=== PATIENT | male | born 1945 | race Caucasian/White ===

== ENCOUNTER 2021-07-26 15:18 | Inpatient (IN) | payer MEDICARE, SELFPAY ==
[2021-07-26] VITALS (15 sets, daily range): BP systolic 147–172; BP diastolic 78–91; PULSE 63–75; RESP 14–23; TEMP 36.2–36.8; O2SAT 84–97; BMI 41.4; BMI 40.8
--- NOTE | 2021-07-26 15:52 | EKG12_ITS ---
Test Reason : Blood Pressure : / mmHG Vent. Rate : 066 BPM Atrial Rate : 066 BPM P-R Int : 204 ms QRS Dur : 208 ms QT Int : 488 ms P-R-T Axes : 005 -53 100 degrees QTc Int : 511 ms Atrial-sensed ventricular-paced rhythm Abnormal ECG Confirmed by RADHA MONROE, SAURABH ([id number]), assistant film editor MONIQUE BULLOCK ([id number]) on 07/27/2021 2:46:53 PM Referred By: OLI Confirmed By:SAURABH GARCIA MD
--- NOTE | 2021-07-26 16:00 | EDS_ITS ---
HPI History of Present Illness Chief Complaint: Shortness of Breath Narrative Narrative: 76-year-old male presenting with shortness of breath. He states has been ongoing for a couple of weeks. He is worse over the last 3 days. He notes that he is having to sleep sitting upright. He has lower extremity edema which is worsening. He notes tightness across his chest when he ambulates. Patient was seen by his primary care physician today who sent him to the emergency room. Patient does have a smoking history but does not smoke anymore. He is not had fever or chills. No nausea or vomiting. He has a history of pacemaker placement and a cardiac stent. Patient not on any oral anticoagulation. [facility] Medical History Brain bleed CAD (coronary artery disease) High cholesterol HTN (hypertension) Lung cancer Pacemaker Home Medications amlodipine 5 mg PO DAILY 05/15/16 [History Last Taken 07/26/21] aspirin 81 mg PO DAILY@199905/15/16 [History Last Taken 07/25/21] coenzyme Q10 50 mg PO DAILY 05/15/16 [History Last Taken 07/26/21] metoprolol tartrate 50 mg PO BID 05/15/16 [History Last Taken 07/26/21] sertraline 100 mg PO DAILY 05/15/16 [History Last Taken 07/26/21] tamsulosin [Flomax] 0.4 mg PO DAILY 05/15/16 [History Last Taken 07/25/21] albuterol sulfate 2 puff INHALATION Q4H PRN PRN 07/26/21 [History Last Taken 07/25/21] fluticasone propionate 1 spray INTRANASAL QHS 07/26/21 [History Last Taken 07/25/21] rosuvastatin 10 mg PO DAILY 07/26/21 [History Last Taken 07/25/21] Allergy/AdvReac Type Severity Reaction Status Date / Time morphine Allergy Rash Verified 07/26/21 15:20 Family History (Updated 07/26/21 @ 18:20 by Kwame MEEHAN) Father Cancer Throat cancer Mother Diabetes Surgical History H/O heart artery stent H/O heart artery stent History of lung surgery Hx of cholecystectomy Social History (Updated 07/26/21 @ 18:20 by Kwame MEEHAN) household members: spouse housing: house Smoking Status: Former smoker ROS ROS ED Constitutional Constitutional ED: Denies chills or fever(s) Eyes Eyes: Denies blurry vision or diplopia ENT ENT ED: Denies rhinorrhea or sore throat Cardiovascular Cardiovascular: Reports chest pain and orthopnea Respiratory/Chest Respiratory/Chest: Reports dyspnea, dyspnea on exertion and orthopnea Gastrointestinal Gastrointestinal: Denies abdominal pain, nausea or vomiting Genitourinary Genitourinary ED: Denies dysuria or hematuria Musculoskeletal Musculoskeletal: Denies arthralgias or myalgias Integumentary Denies rash Neurologic Neurologic: Denies headache(s) or paresthesias EXAM Physical Exam Const Vital Signs: 07/26/21 15:18 07/26/21 15:53 07/26/21 15:54 Temperature 97.2 F L Temperature Source Temporal Pulse Rate 68 Respiratory Rate 14 Respiratory Effort Blood Pressure 172/91 H Blood Pressure Mean 118 Pulse Ox 92 85 90 Oxygen Delivery Method Room Air Room Air Nasal Cannula Oxygen Flow Rate (L/min) 2 07/26/21 15:55 07/26/21 16:01 07/26/21 16:07 Temperature Temperature Source Pulse Rate 65 Respiratory Rate 23 H Respiratory Effort Short of Breath Labored Blood Pressure Blood Pressure Mean Pulse Ox 95 Oxygen Delivery Method Room Air Nasal Cannula Nasal Cannula Oxygen Flow Rate (L/min) 2 2 07/26/21 16:21 07/26/21 17:00 Temperature Temperature Source Pulse Rate 65 Respiratory Rate 17 Respiratory Effort Blood Pressure Blood Pressure Mean Pulse Ox 93 93 Oxygen Delivery Method Nasal Cannula Nasal Cannula Oxygen Flow Rate (L/min) 2 2 Positive well nourished General Appearance ED: NAD HEENT Reports moist mucous membranes atraumatic Eyes PERRL and EOMs intact bilaterally General Eye ED: Negative for pale conjunctiva or scleral icterus Neck no lymphadenopathy and supple Resp normal respiratory effort Cardio regular rate and regular rhythm GI non-tender and non-distended Palpation: soft Extremity General Extremety ED: Yes edema and tenderness General Extremity: edema Neuro oriented x3, CN's II-XII intact bilaterally and no sensory deficits noted Sensorium / Orientation: alert Motor Exam: strength 5/5 throughout Psych mental status grossly normal Thought Process: normal thought process Skin Lesions: no lesions Rashes: no rashes MDM MDM MDM Narrative Medical decision making narrative: Patient presenting with 2 weeks of worsening shortness of breath. He is placed on 3 L of nasal cannula and then weaned to 2 L. He is maintaining O2 sats 92 to 93%. Patient describing orthopnea, dyspnea on exertion, chest tightness with exertion, lower extremity edema. Patient has cardiac disease but no history of CHF. EKG is obtained and on my interpretation this is a paced rhythm at [address]-T wave changes. Chest x-ray on my interpretation does not show any acute cardiopulmonary process. CBC and BMP are unremarkable with exception of a sodium of 130. D-dimer is age-adjusted at 0.65 and is negative. BNP 159. High-sensitivity troponin is 8. Clinically I believe the patient is in congestive heart failure with symptoms. He is given 40 of Lasix IV. Patient was discussed with the hospitalist for admission. Impression: 1. CHF 2. Chest pain 3. Hyponatremia 4. Dyspnea 5. Hypoxic respiratory failure Lab Data Labs: Laboratory Results - last 24 hr 07/26/21 07/26/21 07/26/21 16:05 16:05 16:05 WBC 6.8 RBC 5.01 Hgb 13.1 Hct 41.4 MCV 82.6 MCH 26.1 L MCHC 31.6 L RDW Std Deviation 38.7 RDW Coeff of Verena 12.8 Plt Count 201 MPV 9.4 Immature Gran % (Auto) 0.300 Neut % (Auto) 73.9 H Lymph % (Auto) 12.3 L [place] % (Auto) 7.9 Eos % (Auto) 5.0 Baso % (Auto) 0.6 Absolute Neuts (auto) 5.1 Absolute Lymphs (auto) 0.84 Nucleated RBC % 0 D-Dimer Quant (PE/DVT) 0.65 H* Sodium 130 L Potassium 4.2 Chloride 93 L Carbon Dioxide 31.0 Anion Gap 6 BUN 10 Creatinine 0.73 Estim Creat Clear Calc 56.92 Est GFR (MDRD) Af Amer 134 Est GFR (MDRD) Non-Af 111 BUN/Creatinine Ratio 13.7 Glucose 120 H Calcium 8.5 Troponin I High Sens 8 B-Natriuretic Peptide 07/26/21 16:05 WBC RBC Hgb Hct MCV MCH MCHC RDW Std Deviation RDW Coeff of Verena Plt Count MPV Immature Gran % (Auto) Neut % (Auto) Lymph % (Auto) [place] % (Auto) Eos % (Auto) Baso % (Auto) Absolute Neuts (auto) Absolute Lymphs (auto) Nucleated RBC % D-Dimer Quant (PE/DVT) Sodium Potassium Chloride Carbon Dioxide Anion Gap BUN Creatinine Estim Creat Clear Calc Est GFR (MDRD) Af Amer Est GFR (MDRD) Non-Af BUN/Creatinine Ratio Glucose Calcium Troponin I High Sens B-Natriuretic Peptide 159.3 H Radiography Diagnostic Testing: Clinical Impression(s) from Imaging Studies Chest X-Ray 07/26/21 16:05 IMPRESSION: No radiographic evidence of acute cardiopulmonary disease. at 1656 Reported and signed by: Alejandro Ring MD Electronically Signed: Alejandro Ring MD at 16:55 EDT , Discharge Plan Disposition Disposition: Acute Care Hospital [facility] Discharge Date/Time: 07/26/21 18:20
--- NOTE | 2021-07-26 16:05 | RAD_ITS ---
History: dyspnea EXAMINATION/TECHNIQUE: XR Chest 1 View: Portable COMPARISON: May 15, 2016 FINDINGS: LINES/DEVICES: Interval atrial and ventricular pacemaker wire placement. LUNGS: Mild bibasilar atelectasis. Blunting of the left lateral costophrenic sulcus again noted suggestive of scarring. No pneumothorax. MEDIASTINUM AND CARDIOVASCULAR STRUCTURES: Cardiac silhouette not enlarged. Central airways and mediastinal contour are unremarkable. BONES AND SOFT TISSUES: Unremarkable. RAD/Chest 1 View (Portable) IMPRESSION: No radiographic evidence of acute cardiopulmonary disease. at 1656 Reported and signed by: Alejandro Ring MD Electronically Signed: Alejandro Ring MD at 16:55 EDT ,
[2021-07-26 16:25] LABS: Absolute Lymphocyte Count 0.84 X10^3/uL (0.83-4.51); Absolute Neutrophil Count 5.1 X10^3/uL (2.0-7.7); Basophil# 0.04 X10^3/uL; Basophil% 0.6 % (0-1); Eosinophil# 0.34 X10^3/uL; Hematocrit 41.4 % (40-54); Hemoglobin 13.1 g/dL (13.0-16.5); Lymphocyte # 0.84 X10^3/ul (0.83-4.51); Lymphocyte % 12.3 % (19-41); Mean Corp Hgb Conc 31.6 g/dL (32-36); Mean Corpuscular Hgb 26.1 pg (27.0-32.0); Mean Corpuscular Volume 82.6 fL (80-94); Mean Platelet Vol. 9.4 fl (6.2-12.0); Monocyte# 0.54 X10^3/uL; Monocyte% 7.9 % (0-10); NRBC Flagged by Analyzer 0 % (0-5); Neutrophil # 5.06 X10^3/uL (2.7-7.7); Neutrophil % 73.9 % (47-70); Platelet Count 201 K/mm3 (150-450); RBC Distribution Width CV 12.8 % (11.6-14.6); RBC Distribution Width SD 38.7 fl (35.1-43.9); Red Blood Count 5.01 M/mm3 (4.6-6.2); White Blood Count 6.8 K/mm3 (4.4-11.0)
[2021-07-26 16:40] LABS: BUN 10 mg/dL (7-18); BUN/Creat Ratio 13.7 RATIO (10-20); Calcium,Total 8.5 mg/dL (8.5-10.1); Creatinine, Serum 0.73 mg/dL (0.70-1.30); EST Glomerular Filtration Rate 111 mL/min (>60); Est Glom Filt Rate - Afr Amer 134 mL/min (>60); Estimated Creatinine Clearance 56.92 ml/min; Glucose 120 mg/dL (74-106); Sodium Level 130 mmol/L (136-145); Troponin-I HS 8 pg/mL (3.0-78.0)
[2021-07-26 16:41] LABS: Anion Gap 6 (5-15); Chloride 93 mmol/L (98-107); Potassium 4.2 mmol/L (3.5-5.1)
[2021-07-26 16:51] LABS: D-Dimer Quantitative (DVT/PE) 0.65 FEU/ug/m (0.27-0.49)
[2021-07-26 16:52] LABS: BNP,B-Type NATRIURETIC PEPTIDE 159.3 pg/mL (0-100)
--- NOTE | 2021-07-26 17:57 | NURSING ---
YESENIA TOLENTINO CHF
--- NOTE | 2021-07-26 18:05 | HP.PCM.HOS_ITS ---
Documented by User: Kwame MEEHAN 07/26/21 18:38 HPI - General General Date of Admission: 07/26/21 Date of Service: 07/26/21 Chief Complaint: Shortness of breath HPI Narrative EDSON BENÍTEZ is a 76-year-old male who presents to the ED at [facility] on 07/26/2021 with a chief complaint of shortness of breath. Patient reports that for the past 3 weeks he has been noticing that he has been getting progressively more short of breath. Patient notices the shortness of breath with exertion and at rest, but denies orthopnea and/or paroxysmal nocturnal dyspnea. He also reports that his lower extremities have become swollen over the past few days and that he feels that he has gained weight, although is unclear how much. Patient denies any other infectious symptoms to include purulent spu josep production, fever, chills, N/V/D. Past medical history is significant for small cell lung cancer, pacemaker placement and cardiac stent. Vital signs are stable, although patient was placed on 2 L of oxygen via nasal cannula due to hypoxia at 85% on room air. CBC is unremarkable. BMP shows sodium at 130, otherwise unremarkable. BNP 159. Chest x-ray shows no acute cardiopulmonary process, although there is some pulmonary vascular congestion. Patient was given Lasix while in the ED. [facility] Medical History (Updated 07/26/21 @ 19:[address] Vincent Zheng MD) Anxiety Brain bleed CAD (coronary artery disease) Congestive heart failure (CHF) Depression Former smoker High cholesterol HTN (hypertension) ICD (implantable cardioverter-defibrillator) in place Lung cancer Myocardial infarct Pacemaker Pancreatitis Home Medications amlodipine 5 mg PO DAILY 05/15/16 [History Last Taken 07/26/21] aspirin 81 mg PO DAILY@199905/15/16 [History Last Taken 07/25/21] coenzyme Q10 50 mg PO DAILY 05/15/16 [History Last Taken 07/26/21] metoprolol tartrate 50 mg PO BID 05/15/16 [History Last Taken 07/26/21] sertraline 100 mg PO DAILY 05/15/16 [History Last Taken 07/26/21] tamsulosin [Flomax] 0.4 mg PO DAILY 05/15/16 [History Last Taken 07/25/21] albuterol sulfate 2 puff INHALATION Q4H PRN PRN 07/26/21 [History Last Taken 07/25/21] fluticasone propionate 1 spray INTRANASAL QHS 07/26/21 [History Last Taken 07/25/21] rosuvastatin 10 mg PO DAILY 07/26/21 [History Last Taken 07/25/21] Allergy/AdvReac Type Severity Reaction Status Date / Time morphine Allergy Rash Verified 07/26/21 15:20 Family History (Updated 07/26/21 @ 18:20 by Kwame MEEHAN) Father Cancer Throat cancer Mother Diabetes Surgical History H/O heart artery stent H/O heart artery stent History of lung surgery Hx of cholecystectomy Social History (Updated 07/26/21 @ 18:20 by Kwame MEEHAN) household members: spouse housing: house Smoking Status: Former smoker ROS Constitutional Constitutional: Denies anorexia, change in weight, chills, fatigue, fever(s), malaise, night sweats, weakness or other Eyes Eyes: Denies blurry vision, change in eye color, change in vision, discharge from eye(s), double vision, erythema, eye pain, loss of vision or other ENT HEENT: Denies abnormal hearing, dysphagia, ear pain, epistaxis, headache(s), hearing loss, nasal congestion, nasal discharge, post nasal drip, sinus pressure, sore throat or other Cardiovascular Cardiovascular: Reports dyspnea on exertion and edema; Denies chest pain, claudication, lightheadedness, orthopnea, palpitations, paroxysmal nocturnal dys pnea, rapid heart rate, syncope or other Respiratory/Chest Respiratory/Chest: Reports dyspnea and shortness of breath with exertion; Denies cough, excessive phlegm production, hemoptysis, productive cough, shortness of breath at rest, wheezing or other Gastrointestinal Gastrointestinal: Denies abdominal pain, coffee ground emesis, constipation, diarrhea, dyspepsia, hematemesis, hematochezia, loose stools, melena, nausea, vomiting or other Genitourinary Genitourinary: Denies burning urination, difficulty urinating, dysuria, hematuria, nocturia, urinary frequency, urinary hesitancy, urinary incontinence, urinary urgency or other Musculoskeletal Musculoskeletal: Denies arthralgias, back pain, joint pain, joint stiffness, joint swelling, myalgias, neck pain or other Neurologic Neurologic: Denies abnormal gait, abnormal speech, confusion, disequilibrium, dizziness, focal weakness, headache(s), numbness, paresthesias, seizure-like activity, seizures, syncope, tingling, tremor(s) or other Psychiatric Psychiatric: Denies anxiety, depression, homicidal ideation, suicidal ideation or other Endocrine Endocrinology: Denies change in body appearance, cold intolerance, excessive sweating, heat intolerance, polydipsia, polyuria or other Hematologic/Lymphatic Hematologic/Lymphatic: Denies anemia, easy bleeding, easy bruising, lymphadenopathy or other Allergic/Immunologic Allergic/Immunologic: Denies rhinitis, hives, eczemia, asthma or other Vital Signs Vital Signs Vital Signs: 07/26/21 15:18 07/26/21 15:53 07/26/21 15:54 Temperature 97.2 F L Temperature Source Temporal Pulse Rate 68 Respiratory Rate 14 Respiratory Effort Blood Pressure 172/91 H Blood Pressure Mean 118 Pulse Ox 92 85 90 Oxygen Delivery Method Room Air Room Air Nasal Cannula Oxygen Flow Rate (L/min) 2 07/26/21 15:55 07/26/21 16:01 07/26/21 16:07 Temperature Temperature Source Pulse Rate 65 Respiratory Rate 23 H Respiratory Effort Short of Breath Labored Blood Pressure Blood Pressure Mean Pulse Ox 95 Oxygen Delivery Method Room Air Nasal Cannula Nasal Cannula Oxygen Flow Rate (L/min) 2 2 07/26/21 16:21 07/26/21 17:00 Temperature Temperature Source Pulse Rate 65 Respiratory Rate 17 Respiratory Effort Blood Pressure Blood Pressure Mean Pulse Ox 93 93 Oxygen Delivery Method Nasal Cannula Nasal Cannula Oxygen Flow Rate (L/min) 2 2 Weight Weight: 264 lb 8.875 oz Body Mass Index (BMI) 41.4 Physical Exam Const alert and oriented x3 General Appearance: cooperative HEENT normocephalic, head/scalp atraumatic and hearing grossly normal bilaterally Eyes PERRL and conjunctivae normal Neck no lymphadenopathy, supple and no JVD Resp no retractions and no use of accessory muscles Effort and Inspection: labored Auscultation: wheezes and diminished lung sounds Cardio regular rate, regular rhythm and no JVD GI normal to inspection, nondistended, normoactive bowel sounds Extremity normal to inspection Skin no rashes or lesions noted, no wounds and skin turgor normal Neuro CN's II-XII intact bilaterally Psych affect normal Results Lab / Micro Data Result Diagrams: 07/26/21 16:05 07/26/21 16:05 Labs: Laboratory Results - last 24 hr 07/26/21 16:05: WBC 6.8, RBC 5.01, Hgb 13.1, Hct 41.4, MCV 82.6, MCH 26.1 L, MCHC 31.6 L, RDW Std Deviation 38.7, RDW Coeff of Verena 12.8, Plt Count 201, MPV 9.4, Immature Gran % (Auto) 0.300, Neut % (Auto) 73.9 H, Lymph % (Auto) 12.3 L, [place] % (Auto) 7.9, Eos % (Auto) 5.0, Baso % (Auto) 0.6, Absolute Neuts (auto) 5.1, Absolute Lymphs (auto) 0.84, Nucleated RBC % 0 07/26/21 16:05: D-Dimer Quant (PE/DVT) 0.65 H* 07/26/21 16:05: Sodium 130 L, Potassium 4.2, Chloride 93 L, Carbon Dioxide 31.0, Anion Gap 6, BUN 10, Creatinine 0.73, Estim Creat Clear Calc 56.92, Est GFR (MDRD) Af Amer 134, Est GFR (MDRD) Non-Af 111, BUN/Creatinine Ratio 13.7, Glucose 120 H, Calcium 8.5, Troponin I High Sens 8 07/26/21 16:05: B-Natriuretic Peptide 159.3 H Radiology Impression Chest X-Ray 07/26/21 16:05 IMPRESSION: No radiographic evidence of acute cardiopulmonary disease. at 1656 Reported and signed by: Alejandro Ring MD Electronically Signed: Alejandro Ring MD at 16:55 EDT , Assessment & Plan Assessment/Plan (1) Dyspnea: (2) CHF exacerbation: PLAN: Patient is a 76-year-old male who was admitted to [facility] on 07/26/2021 for evaluation and management of shortness of breath. Patient will be admitted for suspected acute CHF exacerbation. 1) acute CHF exacerbation Unclear subtype, new onset. Patient with hypoxia at 85% on room air, currently satting 93% on 2 L via nasal cannula. BNP mildly elevated at 159. Chest x-ray without cardiomegaly although some pulmonary vascular congestion appreciated. Plan; admit to PCU for cardiac monitoring, initiate IV Lasix 40 mg twice daily, strict I's and O's, monitor daily weights, initiate fluid restriction, obtain CBC and BMP in a.m., echocardiogram in a.m. 2) history of small cell lung cancer Patient had left lower lobe removed in 2004, does not follow with any oncologist. 3) HTN Not within goal, continue metoprolol and amlodipine. 4) depression/anxiety Continue home Zoloft. 5) CAD status post stent Follows with opto mechanical technician at [facility], continue aspirin and statin. 6) BPH Continue Flomax. DVT prophylaxis - Lovenox Patient seen by Kwame Thomas PA-C, under the supervision of Dr. Zheng. Time spent on patient care: 25 minutes. Documented by User: Dr. Vincent Zheng MD 07/26/21 19:25 HPI - General General Date of Admission: 07/26/21 [facility] Medical History (Updated 07/26/21 @ 19:[address] Vincent Zheng MD) Anxiety Brain bleed CAD (coronary artery disease) Congestive heart failure (CHF) Depression Former smoker High cholesterol HTN (hypertension) ICD (implantable cardioverter-defibrillator) in place Lung cancer Myocardial infarct Pacemaker Pancreatitis Home Medications amlodipine 5 mg PO DAILY 05/15/16 [History Last Taken 07/26/21] aspirin 81 mg PO DAILY@199905/15/16 [History Last Taken 07/25/21] coenzyme Q10 50 mg PO DAILY 05/15/16 [History Last Taken 07/26/21] metoprolol tartrate 50 mg PO BID 05/15/16 [History Last Taken 07/26/21] sertraline 100 mg PO DAILY 05/15/16 [History Last Taken 07/26/21] tamsulosin [Flomax] 0.4 mg PO DAILY 05/15/16 [History Last Taken 07/25/21] albuterol sulfate 2 puff INHALATION Q4H PRN PRN 07/26/21 [History Last Taken 07/25/21] fluticasone propionate 1 spray INTRANASAL QHS 07/26/21 [History Last Taken 07/25/21] rosuvastatin 10 mg PO DAILY 07/26/21 [History Last Taken 07/25/21] Allergy/AdvReac Type Severity Reaction Status Date / Time morphine Allergy Rash Verified 07/26/21 15:20 Family History (Updated 07/26/21 @ 18:20 by Kwame MEEHAN) Father Cancer Throat cancer Mother Diabetes Surgical History H/O heart artery stent H/O heart artery stent History of lung surgery Hx of cholecystectomy Social History (Updated 07/26/21 @ 18:20 by Kwame MEEHAN) household members: spouse housing: house Smoking Status: Former smoker Results Lab / Micro Data Result Diagrams: 07/26/21 16:05 07/26/21 16:05 Assessment & Plan Assessment/Plan (1) Acute respiratory failure with hypoxia: Charges/Coding Addendum Addendum: Dr. Zheng: I personally reviewed the chart and examined the patient, and agree with the above findings. 76-year-old male with a history of a heart stent as well as tobacco abuse presents to the hospital with worsening shortness of breath as well as lower extremity edema. He also endorses some orthopnea. He says that he is had multiple echoes in the past but never been told that he has heart failure. Renal function is normal but his BNP was elevated to 159.3, initial troponin was 8. We will start him on Lasix as well as a fluid restriction as well as daily weights. Will obtain an echo in the morning. In the ER he was hypoxic to 84% and is requiring 2 L which is new for him. Clinical time spent in all aspects of patient care: 45 minutes Visit Charges Inpatient E&M: 40971 Init Hosp L3
[2021-07-26] MEDS: Furosemide 40 MG/4 ML Vial IV (18:17)
[2021-07-26] MEDS: Metoprolol Tartrate 50 MG Tablet PO (21:28)
[2021-07-26] MEDS: Atorvastatin Calcium 20 MG Tablet PO (21:28)
[2021-07-27] VITALS (15 sets, daily range): BP systolic 117–153; BP diastolic 61–78; PULSE 65–88; RESP 16–21; TEMP 36.5–36.8; O2SAT 94–96
[2021-07-27 05:51] LABS: Absolute Lymphocyte Count 0.84 X10^3/uL (0.83-4.51); Absolute Neutrophil Count 4.2 X10^3/uL (2.0-7.7); Basophil# 0.04 X10^3/uL; Basophil% 0.7 % (0-1); Eosinophil# 0.36 X10^3/uL; Eosinophils% 5.9 % (0-5); Hematocrit 41.9 % (40-54); Hemoglobin 13.5 g/dL (13.0-16.5); Lymphocyte # 0.84 X10^3/ul (0.83-4.51); Lymphocyte % 13.7 % (19-41); Mean Corp Hgb Conc 32.2 g/dL (32-36); Mean Corpuscular Hgb 26.3 pg (27.0-32.0); Mean Corpuscular Volume 81.5 fL (80-94); Mean Platelet Vol. 9.6 fl (6.2-12.0); Monocyte# 0.66 X10^3/uL; Monocyte% 10.7 % (0-10); NRBC Flagged by Analyzer 0 % (0-5); Neutrophil # 4.22 X10^3/uL (2.7-7.7); Neutrophil % 68.5 % (47-70); Platelet Count 194 K/mm3 (150-450); RBC Distribution Width CV 12.8 % (11.6-14.6); Red Blood Count 5.14 M/mm3 (4.6-6.2); White Blood Count 6.2 K/mm3 (4.4-11.0)
--- NOTE | 2021-07-27 05:55 | ECHOCS_ITS ---
Reason For Study: CHF Procedure This was a 2D Doppler, Color Flow transthoracic echocardiogram. Very technically difficult study due to patients body habitus. Contrast injection was performed. The study was technically difficult. Contrast injection was performed. Exam performed portable in patient room. Left Ventricle Based upon the 2D echocardiographic images obtained there appears to be grossly normal left ventricular size with left ventricular regional wall motion abnormalities with overall preserved LV systolic function. The estimated ejection fraction is 55 %. Diastolic function is indeterminate. Right Ventricle Normal RV size. ICD or pacer leads identified within the right ventricle. Normal systolic function. Atria The left atrium is mildly enlarged. Normal right atrium. ICD or pacer leads identified within the right atrium. No doppler evidence for ASD. Mitral Valve There is mild mitral annular calcification. Extension of the mitral annular calcification onto the base of the posterior mitral valve leaflet. Trivial mitral valve insufficiency. Tricuspid Valve Normal tricuspid valve. Mild tricuspid valve insufficiency. Right ventricular systolic pressure estimated to be 37 mmHg. Aortic Valve Trisinus/trileaflet aortic valve. Mild diffuse aortic valve thickening. Mild focal aortic valve calcification. Aortic sclerosis, no stenosis. Trivial aortic valve insufficiency. Pulmonic Valve The pulmonic valve is not well visualized. Great Vessels The aortic root is not well visualized. Pericardium/Pleural No pericardial effusion. Medication Diluted definity 3ml given slow IV push to enhance endocardial definition. MMode/2D Measurements & Calculations RVDd: 4.7 cm LA dimension: 4.2 cm LAV(MOD-sp4): 83.7 ml LA A4 area: 25.5 cm2 RA A4 area: 16.1 cm2 Time Measurements MV dec time: 0.24 sec Doppler Measurements & Calculations MV E max david: 59.9 cm/sec Lat Peak E' David: 6.7 cm/sec Med Peak E' David: 5.5 cm/sec MV A max david: 91.0 cm/sec E/E' lat: 8.9 E/E' med: 10.9 MV E/A: 0.66 MV V2 max: 104.0 cm/sec MV P1/2t max david: 67.4 cm/sec Ao V2 max: 112.7 cm/sec MV max P.3 mmHg MV P1/2t: 86.1 msec Ao max P.1 mmHg MV V2 mean: 61.6 cm/sec MV dec slope: 229.4 cm/sec2 MV mean P.7 mmHg MV V2 VTI: 25.2 cm MVA(P1/2t): 2.6 cm2 AI max david: 293.7 cm/sec LV V1 max: 104.2 cm/sec PA V2 max: 120.4 cm/sec AI max P.5 mmHg LV V1 max P.3 mmHg AI dec slope: 110.9 cm/sec2 AI P1/2t: 775.5 msec TR max david: 292.3 cm/sec TR max P.2 mmHg ECHO/Echo Complete W/ Contrast Interpretation Summary The study was technically difficult. Contrast injection was performed. Based upon the 2D echocardiographic images obtained there appears to be grossly normal left ventricular size with left ventricular regional wall motion abnormalities with overall preserved LV systolic function. The estimated ejection fraction is 55 %. The left atrium is mildly enlarged. Extension of the mitral annular calcification onto the base of the posterior mi tral valve leaflet. Trivial mitral valve insufficiency. Mild tricuspid valve insufficiency. Aortic sclerosis, no stenosis. Trivial aortic valve insufficiency. Right ventricular systolic pressure estimated to be 37 mmHg. Diastolic function is indeterminate. ICD or pacer leads identified within the right atrium ICD or pacer leads identified within the right ventricle. Ordering Physician: Vincent Zheng Referring Physician: Geraldo Zuleta Performed By: Jeff Link RCS
[2021-07-27 06:12] LABS: Anion Gap 3 (5-15); BUN 9 mg/dL (7-18); Calcium,Total 8.1 mg/dL (8.5-10.1); Chloride 95 mmol/L (98-107); EST Glomerular Filtration Rate 138 mL/min (>60); Est Glom Filt Rate - Afr Amer 167 mL/min (>60); Estimated Creatinine Clearance 56.92 ml/min; Glucose 118 mg/dL (74-106); Potassium 3.7 mmol/L (3.5-5.1); Sodium Level 131 mmol/L (136-145)
[2021-07-27] MEDS: Enoxaparin 40 MG/0.4 ML Syringe SC (08:46)
[2021-07-27] MEDS: Metoprolol Tartrate 50 MG Tablet PO ×2 (08:46→20:02)
[2021-07-27] MEDS: Sertraline 100 MG Tablet PO (08:47)
[2021-07-27] MEDS: Pantoprazole Sodium 20 MG Tablet PO (08:47)
[2021-07-27] MEDS: amLODIPine 5 MG Tablet PO (08:47)
[2021-07-27] MEDS: Tamsulosin HCl 0.4 MG Capsule PO (08:47)
[2021-07-27] MEDS: Aspirin E.C. 81 MG Tablet PO (08:47)
[2021-07-27] MEDS: Furosemide 40 MG/4 ML Vial IV ×2 (08:47→18:06)
[2021-07-27] MEDS: Albuterol 2.5 MG/3 ML VIAL.NEB. INHALATION (09:55)
--- NOTE | 2021-07-27 11:02 | PCM.PN.HOSP ---
Documented by User: Kwame MEEHAN 07/27/21 11:09 Subjective Subjective Patient is a 76-year-old male comfortably resting in bed, alert and oriented x3. Patient reports that his shortness of breath and lower extremity swelling have much improved overnight, although still reports getting short of breath with exertion. Denies development of any new symptoms overnight. Objective Data Objective Data Vital Signs: Vital Signs Temp Pulse Resp BP Pulse Ox 98.2 F 83 19 H 150/71 H 96 07/27/21 08:30 07/27/21 10:02 07/27/21 10:02 07/27/21 08:46 07/27/21 08:30 Oxygen Flow Rate (L/min) 1 Oxygen Delivery Method Nasal Cannula Weight: 258 lb 9.636 oz Body Mass Index (BMI) 40.8 Intake & Output: Intake and Output for Last 24 Hours 07/25/21 07/26/21 07/27/21 23:59 23:59 23:59 Output Total 3000 / 3000 Balance -3000 / -3000 Lab / Micro Data Result Diagrams: 07/27/21 05:16 07/27/21 05:16 Labs: Laboratory Results - last 24 hr 07/26/21 16:05: WBC 6.8, RBC 5.01, Hgb 13.1, Hct 41.4, MCV 82.6, MCH 26.1 L, MCHC 31.6 L, RDW Std Deviation 38.7, RDW Coeff of Verena 12.8, Plt Count 201, MPV 9.4, Immature Gran % (Auto) 0.300, Neut % (Auto) 73.9 H, Lymph % (Auto) 12.3 L, [place] % (Auto) 7.9, Eos % (Auto) 5.0, Baso % (Auto) 0.6, Absolute Neuts (auto) 5.1, Absolute Lymphs (auto) 0.84, Nucleated RBC % 0 07/26/21 16:05: D-Dimer Quant (PE/DVT) 0.65 H* 07/26/21 16:05: Sodium 130 L, Potassium 4.2, Chloride 93 L, Carbon Dioxide 31.0, Anion Gap 6, BUN 10, Creatinine 0.73, Estim Creat Clear Calc 56.92, Est GFR (MDRD) Af Amer 134, Est GFR (MDRD) Non-Af 111, BUN/Creatinine Ratio 13.7, Glucose 120 H, Calcium 8.5, Troponin I High Sens 8 07/26/21 16:05: B-Natriuretic Peptide 159.3 H 07/27/21 05:16: WBC 6.2, RBC 5.14, Hgb 13.5, Hct 41.9, MCV 81.5, MCH 26.3 L, MCHC 32.2, RDW Std Deviation 38.0, RDW Coeff of Verena 12.8, Plt Count 194, MPV 9.6, Immature Gran % (Auto) 0.500, Neut % (Auto) 68.5, Lymph % (Auto) 13.7 L, [place] % (Auto) 10.7 H, Eos % (Auto) 5.9 H, Baso % (Auto) 0.7, Absolute Neuts (auto) 4.2, Absolute Lymphs (auto) 0.84, Nucleated RBC % 0 07/27/21 05:16: Sodium 131 L, Potassium 3.7, Chloride 95 L, Carbon Dioxide 33.0 H, Anion Gap 3 L, BUN 9, Creatinine 0.60 L, Estim Creat Clear Calc 56.92, Est GFR (MDRD) Af Amer 167, Est GFR (MDRD) Non-Af 138, BUN/Creatinine Ratio 15.0, Glucose 118 H, Calcium 8.1 L Radiography Diagnostic Testing: Radiology Impression Chest X-Ray 07/26/21 16:05 IMPRESSION: No radiographic evidence of acute cardiopulmonary disease. at 1656 Reported and signed by: Alejandro Ring MD Electronically Signed: Alejandro Ring MD at 16:55 EDT , Physical Exam Const alert, oriented x3 and no apparent distress HEENT head/scalp atraumatic and moist oral mucous membranes Head and Scalp: normocephalic Eyes PERRL, EOMs intact bilaterally and conjunctivae normal Neck no lymphadenopathy, supple and no JVD Resp Resp Narrative: Still requiring 2 L to sat at 95%. Effort and Inspection: respiratory distress and labored Auscultation: wheezes and diminished lung sounds Cardio regular rate, regular rhythm and no JVD GI normal to inspection, nondistended, normoactive bowel sounds Extremity Extremity Narrative: Improved lower extremity swelling Skin no rashes or lesions noted Neuro CN's II-XII intact bilaterally Psych affect normal Assessment & Plan Assessment/Plan (1) CHF exacerbation: (2) Dyspnea: (3) Acute respiratory failure with hypoxia: PLAN: Day 1 Discharge planning: Current plan is for patient to discharge home when medically ready. 1) acute CHF exacerbation Unclear subtype, new onset. Currently awaiting echocardiogram, continue IV Lasix and metoprolol. Not currently on MARTHA/ARB therapy, although would be a candidate given sufficient kidney function. Strict I's and O's, continue to monitor daily weights, continue fluid restriction. 2) history of small cell lung cancer Patient had left lower lobe removed in 2004, does not follow with any oncologist. 3) HTN Not within goal, continue metoprolol and amlodipine. 4) depression/anxiety Continue home Zoloft. 5) CAD status post stent Follows with business development engineer at [facility], continue aspirin and statin. Request for records initiated. 6) BPH Continue Flomax. DVT prophylaxis - Lovenox Patient seen by Kwame Thomas PA-C, under the supervision of Dr. Zheng. Time spent on patient care: 10 minutes. Documented by User: Dr. Vincent Zheng MD 07/27/21 12:33 Objective Data Lab / Micro Data Result Diagrams: 07/27/21 05:16 07/27/21 05:16 Charges/Coding Addendum Addendum: Dr. Zheng: I personally reviewed the chart and examined the patient, and agree with the above findings. 76-year-old male with a history of a heart stent as well as tobacco abuse presents to the hospital with worsening shortness of breath as well as lower extremity edema. He also endorses some orthopnea. He says that he is had multiple echoes in the past but never been told that he has heart failure. Renal function is normal but his BNP was elevated to 159.3, initial troponin was 8. We will start him on Lasix as well as a fluid restriction as well as daily weights. Will obtain an echo in the morning. In the ER he was hypoxic to 84% and is requiring 2 L which is new for him. Clinical time spent in all aspects of patient care: 45 minutes 07/27/2021: Doing well today, says that he is breathing a little bit easier. He does have a few wheezes on exam and given his smoking history Concert a month DuoNebs today and monitor. Echo is pending. He still gets short of breath with exertion. Clinical time spent in all aspects of patient care: 17 minutes Visit Charges Inpatient E&M: 26531 Subs Hosp L2
--- NOTE | 2021-07-27 11:17 | CASEMGMT ---
This RN CM to room to complete CM assessment and pt is sleeping without distress. CM to attempt later. SStaten RN CM
[2021-07-27] MEDS: Ipratropium/Albuterol Sulfate 3 ML AMPUL.NEB INHALATION ×2 (13:47→19:42)
--- NOTE | 2021-07-27 13:50 | CASEMGMT ---
SAKSHI PEREZ assessment: Face to Face with patient for initial transition planning/care coordination assessment. SAKSHI PEREZ introduced self and role at [facility], pt voices understanding and consents to assessment. Pt is sitting up in bed on 1-2L nc. Pt is A/Ox4 and answers all questions appropriately. Care providers, pharmacy, and demographics verified. Presentation: Pt sent from [facility] for work up with 14lb weight gain, SOB, wheezing and new edema within last 2-3 weeks Admitting dx: CHF PCP: [facility] Specialists: None [facility] Living Will/HPOA: Pt states has LW/HPOA and is aware that they are not on file at [facility]. Pt states his , Celestina Alicia, is HPOA. LNOK: Celestina Alicia, /HPOA Living Arrangements: Pt lives in with in 1 story home with 8 steps and states no concerns at home. Pt is independent with ADL's. Transportation: Pt drives self and states no transportation concerns. DME/HHC: Pt states no current DME or need for any further DME. Pt states 'I will not be going home with oxygen.' Pt states no hx of HHC or SNF in the past. Pt states no concerns with going home at time of discharge. Pt is retired. Pt does not smoke cigarettes and rarely drinks ETOH. Pt voices no further concerns/needs. CM to follow for any further discharge planning/needs. Advised pt to ask for CM if any further questions/concerns/needs arise, voices understanding. Pt Goal: Home Plan: Home [place] SAKSHI PEREZ
[2021-07-27] MEDS: Atorvastatin Calcium 20 MG Tablet PO (20:02)
[2021-07-28] VITALS (10 sets, daily range): BP systolic 124–147; BP diastolic 72–76; PULSE 64–81; RESP 16–20; TEMP 36.6–37.1; O2SAT 89–95
[2021-07-28] MEDS: Ipratropium/Albuterol Sulfate 3 ML AMPUL.NEB INHALATION ×2 (06:43→10:36)
[2021-07-28 06:53] LABS: Anion Gap 3 (5-15); BUN 15 mg/dL (7-18); Calcium,Total 8.4 mg/dL (8.5-10.1); Chloride 95 mmol/L (98-107); Creatinine, Serum 0.75 mg/dL (0.70-1.30); EST Glomerular Filtration Rate 107 mL/min (>60); Est Glom Filt Rate - Afr Amer 129 mL/min (>60); Estimated Creatinine Clearance 56.92 ml/min; Glucose 115 mg/dL (74-106); Potassium 3.8 mmol/L (3.5-5.1); Sodium Level 133 mmol/L (136-145)
[2021-07-28] MEDS: Sertraline 100 MG Tablet PO (08:13)
[2021-07-28] MEDS: Enoxaparin 40 MG/0.4 ML Syringe SC (08:13)
[2021-07-28] MEDS: amLODIPine 5 MG Tablet PO (08:13)
[2021-07-28] MEDS: Metoprolol Tartrate 50 MG Tablet PO (08:13)
[2021-07-28] MEDS: Tamsulosin HCl 0.4 MG Capsule PO (08:13)
[2021-07-28] MEDS: Loratadine 10 MG Tablet PO (08:13)
[2021-07-28] MEDS: Furosemide 40 MG/4 ML Vial IV (08:14)
[2021-07-28] MEDS: Aspirin E.C. 81 MG Tablet PO (08:14)
[2021-07-28] MEDS: Pantoprazole Sodium 20 MG Tablet PO (08:14)
[2021-07-28] MEDS: 0.9% Saline Lock 10 ML Syringe IV (08:19)
--- NOTE | 2021-07-28 09:03 | CASEMGMT ---
Addendum entered by Amada Montano 07/28/21 11:29: Ambulating pox completed, pt did not qualify for home O2. Addendum entered by Amada Montano 07/28/21 09:22: Pulse ox placed with green sheet on chart as well. Original Note: SAKSHI PEREZ notified pt will need O2 upon dc and he is wanting to dc today. SAKSHI PEREZ in to pt room. Pt states he needs to go home d/t his having memory issues. He states he is agreeable to using O2. States he lives in [place] and wants a provider from [facility]. Pt aware [facility] is preferred provider. He is agreeable to this. Pt aware that a portable tank will be delivered to the hospital and once he is home, he needs to call agency to set up concentrator. Green sheet placed on pt chart.
--- NOTE | 2021-07-28 10:23 | DCINST_ITS ---
Discharge Instructions Diet Discharge Diet: 2000 mg Sodium Diet Activity Discharge Activity: Return to Normal Activity Weight Bearing Status: Weight bearing as tolerated Dressing / Incision Call your doctor if you observe: Fever of 101 or Higher, Numbness or Tingling, Shortness of breath, Dizziness, Chest pain, Increased palpitations (irregular heartbeat) and Calf discomfort Follow Up Care Please Follow Up With: Primary care provider When: Within the next two weeks. Test Results: Test results from this visit will be discussed in further detail at your follow-up appointment, if applicable. Discharge Plan Admission Admit Date/Time: 07/26/21 17:52 Primary Reason for Your Visit: Shortness of breath Attending Provider: Vincent Zheng Primary Care Provider: Geraldo Zuleta Instructions Additional Instructions / Restrictions: * Obtain a Basic Metabolic Profile at the hospital or your primary doctors office to monitor your electrolytes and kidney function. Discharge Orders/Prescriptions Prescriptions: New furosemide [Lasix] 40 mg tablet 40 mg PO DAILY Qty: 30 RF: 0 Continued amlodipine 5 MG tablet 5 mg PO DAILY RF: 0 aspirin 81 MG tablet 81 mg PO DAILY@1999 RF: 0 coenzyme Q10 50 MG capsule 50 mg PO DAILY RF: 0 tamsulosin [Flomax] 0.4 MG capsule 0.4 mg PO DAILY RF: 0 metoprolol tartrate 50 MG tablet 50 mg PO BID RF: 0 sertraline 50 MG tablet 100 mg PO DAILY RF: 0 albuterol sulfate 90 mcg/actuation HFA aerosol inhaler 2 puff INHALATION Q4H PRN PRN (Reason: Wheezing) RF: 0 rosuvastatin 10 mg tablet 10 mg PO DAILY RF: 0 fluticasone propionate 50 mcg/actuation spray,suspension 1 spray INTRANASAL QHS RF: 0 Other Ambulatory Orders: Basic Metabolic Profile (BMP) (Routine) Timeframe: [id number] Facility: [facility] - Location: Laboratory Ordered By: Kwaem MEEHAN Referrals / Follow Up: Geraldo Zuleta MD [Primary Care Provider] - Within 2 Weeks Disposition Disposition (needs filled in before D/C Order can be placed): Home, Self Care
--- NOTE | 2021-07-28 11:46 | DS.PCM_ITS ---
Documented by User: Kwame MEEHAN 07/28/21 11:58 Providers Date of Admission: 07/26/21 Date of Discharge: 07/28/21 Primary Care Physician: Dr. Geraldo Zuleta MD Reason For Visit: CHF Diagnosis Discharge Diagnosis (1) CHF exacerbation: Status: Chronic Code(s): I50.9 - Heart failure, unspecified (2) Dyspnea: Status: Acute Code(s): R06.00 - Dyspnea, unspecified (3) Acute respiratory failure with hypoxia: Status: Acute Code(s): J96.01 - Acute respiratory failure with hypoxia Medications at Discharge Home Medications amlodipine 5 mg PO DAILY 05/15/16 aspirin 81 mg PO DAILY@199905/15/16 coenzyme Q10 50 mg PO DAILY 05/15/16 metoprolol tartrate 50 mg PO BID 05/15/16 sertraline 100 mg PO DAILY 05/15/16 tamsulosin [Flomax] 0.4 mg PO DAILY 05/15/16 albuterol sulfate 2 puff INHALATION Q4H PRN PRN 07/26/21 fluticasone propionate 1 spray INTRANASAL QHS 07/26/21 rosuvastatin 10 mg PO DAILY 07/26/21 furosemide [Lasix] 40 mg PO DAILY #30 tab 07/28/21 Hospital Course Procedures 2-D Echocardiogram and Transesophageal Echo Summary of Care Provided Minutes Spent on Discharge: 20 Hospital Course: Patient is a 76-year-old male who was admitted to [facility] on 07/26 for evaluation and management of shortness of breath. Hospital course and management as below. 1) acute HFpEF exacerbation New onset. Echocardiogram obtained on 07/27 demonstrated preserved LV systolic function, an EF of 55%, and RVSP of 37 mmHg and indeterminate diastolic dysfunction. Patient did not qualify for home oxygen. Will initiate Lasix, will hold off on MARTHA/ARB therapy given new Lasix initiation. Continue home metoprolol. Patient to obtain an outpatient BMP either at the hospital or his primary care provider's office to monitor electrolytes. 2) history of small cell lung cancer Patient had left lower lobe removed in 2004, does not follow with any oncologist. 3) HTN Continue metoprolol and amlodipine, initiate Lasix as above. 4) depression/anxiety Continue home Zoloft. 5) CAD status post stent Follows with deposit refund clerk at [facility], continue aspirin and statin. 6) BPH Continue Flomax. Patient seen by Kwame Thomas PA-C, under the supervision of Dr. Zheng. Time spent on patient care: 20 minutes. Physical Exam Narrative Patient is a 76-year-old male comfortably resting in a chair, alert and orient x3. Reports that shortness of breath and lower extremity swelling are much improved from admission. Patient denies development of any new symptoms overnight. Does not appear in acute distress. Const alert, oriented x3 and no apparent distress HEENT normocephalic, head/scalp atraumatic and hearing grossly normal bilaterally Eyes PERRL, EOMs intact bilaterally and conjunctivae normal Neck no lymphadenopathy, supple and no JVD Resp normal respiratory effort, no retractions and no use of accessory muscles Cardio regular rate, regular rhythm and no JVD GI normal to inspection, nondistended, normoactive bowel sounds Extremity normal to inspection Skin no rashes or lesions noted Neuro CN's II-XII intact bilaterally Psych affect normal Weight / BMI Weight Weight: 251 lb 8.759 oz Body Mass Index (BMI) 40.8 ABG / Lab / Microbiology Data Result Diagrams: 07/27/21 05:16 07/28/21 05:16 Laboratory: Laboratory Results - last 24 hr 07/28/21 05:16: Sodium 133 L, Potassium 3.8, Chloride 95 L, Carbon Dioxide 35.0 H, Anion Gap 3 L, BUN 15, Creatinine 0.75, Estim Creat Clear Calc 56.92, Est GFR (MDRD) Af Amer 129, Est GFR (MDRD) Non-Af 107, BUN/Creatinine Ratio 20.0, Gluc ose 115 H, Calcium 8.4 L Radiography Diagnostic Testing: Radiology Impression Echocardiogram 07/27/21 05:55 Interpretation Summary The study was technically difficult. Contrast injection was performed. Based upon the 2D echocardiographic images obtained there appears to be grossly normal left ventricular size with left ventricular regional wall motion abnormalities with overall preserved LV systolic function. The estimated ejection fraction is 55 %. The left atrium is mildly enlarged. Extension of the mitral annular calcification onto the base of the posterior mitral valve leaflet. Trivial mitral valve insufficiency. Mild tricuspid valve insufficiency. Aortic sclerosis, no stenosis. Trivial aortic valve insufficiency. Right ventricular systolic pressure estimated to be 37 mmHg. Diastolic function is indeterminate. ICD or pacer leads identified within the right atrium ICD or pacer leads identified within the right ventricle. Ordering Physician: Vincent Zheng Referring Physician: Geraldo Zuleta Performed By: Jeff Link RCS D/C Instructions Discharge Diet: 2000 mg Sodium Diet Weight Bearing Status: Weight bearing as tolerated Call your doctor if you observe: Fever of 101 or Higher, Numbness or Tingling, Shortness of breath, Dizziness, Chest pain, Increased palpitations (irregular heartbeat) and Calf discomfort Please Follow Up With: Primary care provider When: Within the next two weeks. Meaningful Use Info Meaningful Use Diagnoses (Choose all that apply): CHF CHF MARTHA/ARB ordered at discharge?: No Reason MARTHA/ARB not ordered?: Normal EF Documented LVEF (%): 55 Discharge Plan Admission Admit Date/Time: 07/26/21 17:52 Primary Reason for Your Visit: Shortness of breath Attending Provider: Vincent Zheng Primary Care Provider: Geraldo Zuleta Instructions Additional Instructions / Restrictions: * Obtain a Basic Metabolic Profile at the hospital or your primary doctors office to monitor your electrolytes and kidney function. Discharge Orders/Prescriptions Prescriptions: New furosemide [Lasix] 40 mg tablet 40 mg PO DAILY Qty: 30 RF: 0 Continued amlodipine 5 MG tablet 5 mg PO DAILY RF: 0 aspirin 81 MG tablet 81 mg PO DAILY@1999 RF: 0 coenzyme Q10 50 MG capsule 50 mg PO DAILY RF: 0 tamsulosin [Flomax] 0.4 MG capsule 0.4 mg PO DAILY RF: 0 metoprolol tartrate 50 MG tablet 50 mg PO BID RF: 0 sertraline 50 MG tablet 100 mg PO DAILY RF: 0 albuterol sulfate 90 mcg/actuation HFA aerosol inhaler 2 puff INHALATION Q4H PRN PRN (Reason: Wheezing) RF: 0 rosuvastatin 10 mg tablet 10 mg PO DAILY RF: 0 fluticasone propionate 50 mcg/actuation spray,suspension 1 spray INTRANASAL QHS RF: 0 Other Ambulatory Orders: Basic Metabolic Profile (BMP) (Routine) Timeframe: [id number] Facility: [facility] - Location: Laboratory Ordered By: Kwame MEEHAN Referrals / Follow Up: Geraldo Zuleta MD [Primary Care Provider] - Within 2 Weeks Disposition Disposition (needs filled in before D/C Order can be placed): Home, Self Care Documented by User: Dr. Vincent Zheng MD 07/28/21 13:17 Providers Date of Admission: 07/26/21 Reason For Visit: CHF Medications at Discharge Home Medications amlodipine 5 mg PO DAILY 05/15/16 aspirin 81 mg PO DAILY@199905/15/16 coenzyme Q10 50 mg PO DAILY 05/15/16 metoprolol tartrate 50 mg PO BID 05/15/16 sertraline 100 mg PO DAILY 05/15/16 tamsulosin [Flomax] 0.4 mg PO DAILY 05/15/16 albuterol sulfate 2 puff INHALATION Q4H PRN PRN 07/26/21 fluticasone propionate 1 spray INTRANASAL QHS 07/26/21 rosuvastatin 10 mg PO DAILY 07/26/21 furosemide [Lasix] 40 mg PO DAILY #30 tab 07/28/21 ABG / Lab / Microbiology Data Result Diagrams: 07/27/21 05:16 07/28/21 05:16 Discharge Plan Admission Admit Date/Time: 07/26/21 17:52 Primary Reason for Your Visit: Shortness of breath Attending Provider: Vincent Zheng Primary Care Provider: Geraldo Zuleta Instructions Additional Instructions / Restrictions: * Obtain a Basic Metabolic Profile at the hospital or your primary doctors office to monitor your electrolytes and kidney function. Discharge Orders/Prescriptions Prescriptions: New furosemide [Lasix] 40 mg tablet 40 mg PO DAILY Qty: 30 RF: 0 Continued amlodipine 5 MG tablet 5 mg PO DAILY RF: 0 aspirin 81 MG tablet 81 mg PO DAILY@2000 RF: 0 coenzyme Q10 50 MG capsule 50 mg PO DAILY RF: 0 tamsulosin [Flomax] 0.4 MG capsule 0.4 mg PO DAILY RF: 0 metoprolol tartrate 50 MG tablet 50 mg PO BID RF: 0 sertraline 50 MG tablet 100 mg PO DAILY RF: 0 albuterol sulfate 90 mcg/actuation HFA aerosol inhaler 2 puff INHALATION Q4H PRN PRN (Reason: Wheezing) RF: 0 rosuvastatin 10 mg tablet 10 mg PO DAILY RF: 0 fluticasone propionate 50 mcg/actuation spray,suspension 1 spray INTRANASAL QHS RF: 0 Other Ambulatory Orders: Basic Metabolic Profile (BMP) (Routine) Timeframe: [id number] Facility: [facility] - Location: Laboratory Ordered By: Kwame MEEHAN Referrals / Follow Up: Geraldo Zuleta MD [Primary Care Provider] - Within 2 Weeks Disposition Disposition (needs filled in before D/C Order can be placed): Home, Self Care Charges/Coding Addendum Addendum: Dr. Zheng: I personally reviewed the chart and examined the patient, and agree with the above findings. 76-year-old male with a history of a heart stent as well as tobacco abuse presents to the hospital with worsening shortness of breath as well as lower extremity edema. He also endorses some orthopnea. He says that he is had multiple echoes in the past but never been told that he has heart fail ure. Renal function is normal but his BNP was elevated to 159.3, initial troponin was 8. We will start him on Lasix as well as a fluid restriction as well as daily weights. Will obtain an echo in the morning. In the ER he was hypoxic to 84% and is requiring 2 L which is new for him. Clinical time spent in all aspects of patient care: 45 minutes 07/27/2021: Doing well today, says that he is breathing a little bit easier. He does have a few wheezes on exam and given his smoking history Concert a month DuoNebs today and monitor. Echo is pending. He still gets short of breath with exertion. Clinical time spent in all aspects of patient care: 17 minutes 07/28/2021: Feels much better today, he states that he has to go home regardless of whether or not he is ready to take care of his who has Alzheimer's. We did an ambulatory pulse ox and he did not require any oxygen. Echo was performed yesterday, and it demonstrated a normal EF with regional wall motion a bnormalities in the left ventricle. He did have an RVSP of 37 mmHg. He will be discharged on Lasix 40 mg daily and he will need to have an outpatient BMP by his primary care doctor. I also recommend, given the findings on the echo with the wall motion abnormalities that he follow-up with his deposit refund clerk as an outpatient for further evaluation, we do not have any prior echoes in our system to be able to compare to. I discussed with him the plan for discharge today and he expressed understanding of the risk benefits of going home and he would like to go home today. Clinical time spent in all aspects of patient care: 25 minutes Visit Charges Inpatient E&M: 19891 Disch Hosp
--- NOTE | 2021-07-28 15:18 | NURSING ---
Reviewed and agreed on charting with Kristal Willingham RN
== END 2021-07-28 14:49 | disposition home or self-care (01) | DRG 291 ==
LOC: ED 17:54 → PCU 18:05
PROVIDERS: Physician Assistant; Admitting Provider Family Medicine; Emergency Provider Student in an Organized Health Care Education/Training Program; PCP Family Medicine; Visit Provider Family Medicine
DX: I11.0 Hypertensive heart disease with heart failure (principal); I50.33 Acute on chronic diastolic (congestive) heart failure; J96.01 Acute respiratory failure with hypoxia; E87.1 Hypo-osmolality and hyponatremia; E78.00 Pure hypercholesterolemia, unspecified; F41.9 Anxiety disorder, unspecified; I25.10 Atherosclerotic heart disease of native coronary artery without angina pectoris; I25.2 Old myocardial infarction; N40.0 Benign prostatic hyperplasia without lower urinary tract symptoms; Z79.82 Long term (current) use of aspirin; F32.A Depression, unspecified; Z87.891 Personal history of nicotine dependence; Z79.899 Other long term (current) drug therapy; Z79.51 Long term (current) use of inhaled steroids; Z95.0 Presence of cardiac pacemaker; Z95.5 Presence of coronary angioplasty implant and graft
CPT/HCPCS: 36415; 71045; 80048; 83880; 84484; 85025; 85379; 93005; 93306; 94640; 97802; 99285; Q9957; A4216; C8929; J1940

== ENCOUNTER → 2023-04-04 | Outpatient (CLI) | payer MEDICARE, SELFPAY ==
[2023-04-04 10:43] LABS: D-Dimer Quantitative (DVT/PE) < 0.27 FEU/ug/m (0.27-0.49)
[2023-04-04 10:46] LABS: BNP,B-Type NATRIURETIC PEPTIDE 131.8 pg/mL (0-100)
== END | disposition home or self-care (01) ==
LOC: LABSPEC 10:20
PROVIDERS: PCP Family Medicine; Referring Provider Registered Nurse; Visit Provider Registered Nurse
DX: R06.02 Shortness of breath (principal)
CPT/HCPCS: 83880; 85379